=== PATIENT | male | born 1930 ===

== ENCOUNTER 2016-08-25 17:18 | Inpatient (IN) | payer MEDICARE, MEDICAID ==
[2016-08-25 17:19] VITALS: BMI 29.0
[2016-08-25] MEDS ORDERED: DiphenhydrAMINE 50 mg/ml Inj IVP STA (17:42)
[2016-08-25] MEDS ORDERED: Sodium Chloride 0.9% 500 ML IV ONE (17:43)
[2016-08-25] MEDS ORDERED: DiphenhydrAMINE 50 mg/ml Inj ONE (17:51)
[2016-08-25] MEDS ORDERED: Sodium Chloride 0.9% 1,000 ML ONE (17:52)
--- NOTE | 2016-08-25 17:57 | C.PDOC ---
History Of Present Illness Patient brought to ED by family members for evaluation of swelling of face/ upper lip since waking up this morning. Patient denies SOB, tongue swelling, sensation of throat closing up, dental pain, chest pain, palpitations, fever, itching or rash. He also denies known allergens. Patient has h/o DM, HTN, hyperlipidemia - currently on EDDIE inhibitor x several years. Family gave patient PO Benadryl this morning. Time Seen by Provider: 08/25/16 17:42 Chief Complaint (Nursing): Allergic Reaction History Per: Patient, Family History/Exam Limitations: no limitations Onset/Duration Of Symptoms: Hrs Current Symptoms Are (Timing): Still Present Severity: Moderate Past Medical History Reviewed: Historical Data, Nursing Documentation, Vital Signs Vital Signs: Last Vital Signs Temp 97.6 F 08/30/16 08:05 Pulse 69 08/30/16 08:05 Resp 18 08/30/16 08:05 BP 148/69 08/30/16 08:05 Pulse Ox 99 08/30/16 08:05 - Medical History PMH: Arthritis (B/L KNEE), Depression, Diabetes (type 2), HTN, Hypercholesterolemia, Peripheral Edema Surgical History: Endoscopy - [facility] Procedures VACCINATION NEC (06/07/14) Family History: States: No Known Family Hx - Social History Hx Tobacco Use: No Hx Alcohol Use: No Hx Substance Use: No - Immunization History Hx Tetanus Toxoid Vaccination: No Hx Influenza Vaccination: No Hx Pneumococcal Vaccination: No Review Of Systems Except As Marked, All Systems Reviewed And Found Negative. Constitutional: Negative for: Fever, Chills ENT: Positive for: Mouth Swelling (upper lip swelling ). Negative for: Throat Swelling Cardiovascular: Negative for: Chest Pain, Palpitations Respiratory: Negative for: Cough, Shortness of Breath, Wheezing Gastrointestinal: Negative for: Nausea, Vomiting Skin: Negative for: Rash Physical Exam - Physical Exam Appears: Well, Non-toxic, No Acute Distress, Other (speaking in full sentences) Skin: No Rash, Other (upper lip/face swelling) Head: Normacephalic Eye(s): bilateral: Normal Inspection Oral Mucosa: Moist, No Drooling, No Trismus Tongue: Normal Appearing, No Swelling, No Lesions Lips: Swelling (upper lip) Teeth: Normal Dentition Gingiva: Normal Appearing Throat: Normal, No Erythema, No Exudate, No Drooling Neck: Normal, Normal ROM Cardiovascular: Rhythm Regular Respiratory: Normal Breath Sounds, No Rales, No Rhonchi, No Wheezing Extremity: Normal ROM, No Pedal Edema Neurological/Psych: Oriented x3 ED Course And Treatment - Laboratory Results Result Diagrams: 08/25/16 17:57 08/30/16 11:04 ECG: Interpreted By Me, Viewed By Me (sinus rhythm 70 bpm, normal axis, no acute ST/T wave changes) ECG Interpretation: Normal O2 Sat by Pulse Oximetry: 98 (RA) Pulse Ox Interpretation: Normal Progress Note: Blood work ordered and reviewed. Patient given IV NS bolus, IV solumedrol, IV pepcid, IV benadryl. Blood work shows significant hypocalcemia - PO & IV Calcium ordered. - Physician Consult Information Physician Contacted: Michoacano Love Outcome Of Conversation: Discussed patient with Dr. Senthil Love, agrees with telemetry observation for lip swelling/angioedema, likely due to EDDIE inhibitor. Disposition - Disposition Disposition: HOSPITALIZED Disposition Time: 18:55 Condition: STABLE - Clinical Impression Clinical Impression: ARF (acute renal failure), EDDIE inhibitor-aggravated angioedema, Lip swelling, Hypocalcemia Decision To Admit - Pt Status Changed To: Hospital Disposition Of: Inpatient - Admit Certification Admit to Inpatient:: After my assessment, the patient will require hospitalization for at least two midnights. This is because of the severity of symptoms shown, intensity of services needed, and/or the medical risk in this patient being treated as an outpatient. - InPatient: Physician Admission Certification: I certify that this patient requires 2 or more midnights of care for the following reason:: see notes - . Bed Request Type: Telemetry Admitting Physician: Michoacano Love Patient Diagnosis: Hypocalcemia, Lip swelling, EDDIE inhibitor-aggravated angioedema, ARF (acute renal failure)
[2016-08-25 18:02] LABS: BASO % 0.5 % (0.0-2.0); EOS # 0.2 K/uL (0.0-0.7); EOS % 2.9 % (0.0-4.0); HEMATOCRIT 34.9 % (35.0-51.0); LYMPH # 1.8 K/uL (1.0-4.3); LYMPH % 22.5 % (20.0-40.0); MEAN CELL VOLUME 85.4 fL (80.0-94.0); MEAN CORPUSCULAR HEMOGLOBIN 29.5 pg (27.0-31.0); MEAN CORPUSCULAR HGB CONC 34.5 g/dL (33.0-37.0); MEAN PLATELET VOLUME 7.9 fL (7.2-11.7); MONO # 0.8 K/uL (0.0-0.8); MONO % 10.4 % (0.0-10.0); RED CELL DISTRIBUTION WIDTH 12.1 % (11.5-14.5); WHITE BLOOD COUNT 8.1 K/uL (4.8-10.8)
[2016-08-25 18:50] LABS: POTASSIUM 4.1 mmol/L (3.6-5.2)
[2016-08-25 18:52] LABS: ALB/GLOB RATIO 1.2 (1.0-2.1); BILIRUBIN,TOTAL 0.5 mg/dL (0.2-1.3); TOTAL PROTEIN 6.7 g/dL (6.3-8.3)
[2016-08-25 18:55] LABS: CALCIUM 4.4 mg/dl (8.6-10.4)
[2016-08-25] MEDS ORDERED: Calcium Carbonate 500 mg Chewable Antacid Tab PO STA (19:00)
[2016-08-25] MEDS ORDERED: Calcium Gluconate 4.65 mEq/10 ml Inj IVP ONE (19:13)
[2016-08-25] MEDS ORDERED: Calcium Gluconate 4.65 mEq/10 ml Inj ONE (19:41)
--- NOTE | 2016-08-25 19:52 | CP.PCM.HP ---
Past Patient History - Infectious Disease Hx of Infectious Diseases: None - Past Medical History & Family History Past Medical History?: Yes - Past Social History Smoking Status: Former Smoker - CARDIAC Hx Hypercholesterolemia: Yes Hx Hypertension: Yes Hx Peripheral Edema: Yes - PULMONARY Hx Respiratory Disorders: No - NEUROLOGICAL Hx Neurological Disorder: No - HEENT Hx HEENT Problems: Yes Hx Glaucoma: Yes - RENAL Hx Chronic Kidney Disease: No - ENDOCRINE/METABOLIC Hx Diabetes Mellitus Type 1: Yes - HEMATOLOGICAL/ONCOLOGICAL Hx Blood Disorders: No - INTEGUMENTARY Hx Dermatological Problems: No - MUSCULOSKELETAL/RHEUMATOLOGICAL Hx Arthritis: Yes (B/L KNEE) - GASTROINTESTINAL Hx Gastrointestinal Disorders: Yes Hx Fatty Liver Disease: Yes Hx Gastroesophageal Reflux: Yes Other/Comment: ABDOMINAL PAIN ON AND OFF - GENITOURINARY/GYNECOLOGICAL Hx Genitourinary Disorders: No - PSYCHIATRIC Hx Depression: Yes Hx Substance Use: No - SURGICAL HISTORY Hx Surgeries: Yes Hx Herniorrhaphy: Yes (R INGUINAL 6 YRS AGO) - ANESTHESIA Hx Anesthesia: Yes Hx Anesthesia Reactions: No Hx Malignant Hyperthermia: No Meds Allergies/Adverse Reactions: Allergies Allergy/AdvReac Type Severity Reaction Status Date / Time No Known Allergies Allergy Verified 08/25/16 17:28 Results - Vital Signs Recent Vital Signs: Last Vital Signs Temp 97 F L 08/25/16 17:28 Pulse 68 08/25/16 17:28 Resp 20 08/25/16 17:28 BP 129/65 08/25/16 17:28 Pulse Ox 98 08/25/16 18:41 - Labs Result Diagrams: 08/25/16 17:57 08/25/16 18:32 Labs: Laboratory Results - last 24 hr 08/25/16 18:58 Magnesium 2.0
[2016-08-25] MEDS: (Novolin R) Insulin Human Regular 100 units/ml vial SC SCH (21:30)
[2016-08-26] MEDS: (Novolin R) Insulin Human Regular 100 units/ml vial SC SCH ×4 (02:59→20:37)
[2016-08-26] MEDS: Pantoprazole 40 mg EC Tab PO SCH ×2 (09:12→18:00)
[2016-08-26] MEDS: Multiple Vitamins Tab PO SCH (09:13)
[2016-08-26] MEDS: Divalproex 250 mg DR Tab PO SCH ×2 (09:52→17:40)
[2016-08-26 11:24] LABS: CHLORIDE 96 mmol/L (98-107); POTASSIUM 4.2 mmol/L (3.6-5.2); SODIUM 130 mmol/L (132-148)
[2016-08-26 11:27] LABS: BLOOD UREA NITROGEN 32 mg/dL (9-20); CARBON DIOXIDE 20 mmol/L (22-30); GFR AFRICAN-AMERICAN > 60; GLUCOSE,RANDOM 224 mg/dL (75-110)
[2016-08-26 11:36] LABS: CALCIUM 5.3 mg/dl (8.6-10.4)
--- NOTE | 2016-08-26 13:36 | CP.PCM.PN ---
Subjective - Date & Time of Evaluation Date of Evaluation: 08/26/16 Time of Evaluation: 11:20 - Subjective Subjective: clinically same Objective - Vital Signs/Intake and Output Vital Signs (last 24 hours): Temp Pulse Resp BP Pulse Ox 97.8 F 75 20 126/68 97 08/25/16 23:20 08/26/16 07:40 08/25/16 23:20 08/25/16 23:20 08/25/16 23:20 Intake and Output: 08/26/16 08/26/16 06:59 18:59 Intake Total 200 Output Total 250 Balance -50 - Medications Medications: Current Medications Acetaminophen (Tylenol 325mg Tab) 650 mg PO Q6 PRN PRN Reason: for pain/ headache Last Admin: 08/25/16 21:28 Dose: 650 mg Amlodipine Besylate (Norvasc) 5 mg PO DAILY [facility] Last Admin: 08/26/16 09:13 Dose: 5 mg Carvedilol (Coreg) 3.125 mg PO BID [facility] Last Admin: 08/26/16 09:13 Dose: 3.125 mg Divalproex Sodium (Depakote Dr) 250 mg PO BID [facility] Last Admin: 08/26/16 09:52 Dose: 250 mg Donepezil HCl (Aricept) 10 mg PO DAILY [facility] Dorzolamide HCl (Trusopt) 0 ml OU BID [facility] Heparin Sodium (Porcine) (Heparin) 5,000 units SC Q12H [facility] Last Admin: 08/26/16 09:46 Dose: 5,000 units Insulin Human Regular (Novolin R) 0 unit SC Q6H [facility] PRN Reason: Protocol Last Admin: 08/26/16 09:30 Dose: 4 unit Levetiracetam (Keppra) 500 mg PO Q12 [facility] Last Admin: 08/26/16 09:12 Dose: 500 mg Lisinopril (Zestril) 10 mg PO DAILY [facility] Last Admin: 08/26/16 09:12 Dose: 10 mg Losartan Potassium (Cozaar) 100 mg PO DAILY [facility] Last Admin: 08/26/16 09:12 Dose: 100 mg Memantine (Namenda) 5 mg PO BID [facility] Last Admin: 08/26/16 09:31 Dose: 5 mg Multivitamins (Hexavitamin) 1 tab PO DAILY [facility] Last Admin: 06/03/17 09:13 Dose: 1 tab Pantoprazole Sodium (Protonix Ec Tab) 40 mg PO BID [facility] Last Admin: 08/26/16 09:12 Dose: 40 mg Rosuvastatin Calcium (Crestor) 5 mg PO HS [facility] Last Admin: 08/25/16 21:28 Dose: 5 mg Sitagliptin Phosphate (Januvia) 50 mg PO DAILY [facility] Last Admin: 08/26/16 09:12 Dose: 50 mg Timolol Maleate (Timoptic 0.5% Ophth Soln) 1 drop OU DAILY [facility] Tramadol HCl (Ultram) 50 mg PO TID PRN PRN Reason: Pain, moderate (4-7) - Labs Labs: 08/26/16 11:13 - Constitutional Appears: Well - Head Exam Head Exam: ATRAUMATIC, NORMAL INSPECTION, NORMOCEPHALIC - Eye Exam Eye Exam: EOMI, Normal appearance, PERRL Pupil Exam: NORMAL ACCOMODATION, PERRL - ENT Exam ENT Exam: Mucous Membranes Moist, Normal Exam - Neck Exam Neck Exam: Full ROM, Normal Inspection. absent: Lymphadenopathy - Respiratory Exam Respiratory Exam: Decreased Breath Sounds - Cardiovascular Exam Cardiovascular Exam: REGULAR RHYTHM, +S1, +S2 - GI/Abdominal Exam GI & Abdominal Exam: Soft, Diminished Bowel Sounds - Rectal Exam Rectal Exam: Deferred Assessment and Plan - Assessment and Plan (Free Text) Plan: hold isabel inh iv steroid contis ae med reconilation noneed for iv antibiotic will see with iv steroid adn yeyos given at home
[2016-08-26] MEDS: MethylPREDNISolone 40 mg Vial IVP SCH ×2 (14:17→21:35)
[2016-08-26] MEDS: Dorzolamide 2% Opht Sol 10ml OU SCH ×2 (14:22→17:40)
[2016-08-26] MEDS: Calcium-Vit D 250 mg-125 Units Tab UD PO SCH (15:31)
[2016-08-26 17:30] LABS: PHOSPHOROUS 6.2 mg/dL (2.5-4.5)
--- NOTE | 2016-08-26 19:09 | CP.PCM.CON ---
History of Present Illness - History of Present Illness History of Present Illness: 86 year old gentleman with history of hypertension on enalapril. Recently was admitted after a fall with intracerebral bleed that improved with observation still on Keppra. Was admitted with swallowing face treated with Benadryl and sternoid. Patient was noted to have deteriorating renal function and severe hypocalcemia however with no symptom Review of Systems - Constitutional Constitutional: Anorexia, Weakness - EENT Eyes: absent: Discharge, Exophthalmos Nose/Mouth/Throat: absent: Epistaxis - Cardiovascular Cardiovascular: absent: Acrocyanosis, Chest Pain, Dyspnea on Exertion, Palpitations, Syncope - Respiratory Respiratory: absent: Cough, Dyspnea, Hemoptysis - Gastrointestinal Gastrointestinal: absent: Abdominal Pain, Diarrhea, Hematochezia, Nausea, Vomiting - Genitourinary Genitourinary: Urinary Frequency Past Patient History - Infectious Disease Hx of Infectious Diseases: None - Past Medical History & Family History Past Medical History?: Yes - Past Social History Smoking Status: Former Smoker - CARDIAC Hx Hypercholesterolemia: Yes Hx Hypertension: Yes Hx Peripheral Edema: Yes - PULMONARY Hx Respiratory Disorders: No - NEUROLOGICAL Hx Neurological Disorder: Yes Hx Alzheimer's Disease: Yes - HEENT Hx HEENT Problems: Yes Hx Glaucoma: Yes - RENAL Hx Chronic Kidney Disease: No - ENDOCRINE/METABOLIC Hx Diabetes Mellitus Type 1: Yes - HEMATOLOGICAL/ONCOLOGICAL Hx Blood Disorders: No - INTEGUMENTARY Hx Dermatological Problems: No - MUSCULOSKELETAL/RHEUMATOLOGICAL Hx Falls: Yes - GASTROINTESTINAL Hx Gastrointestinal Disorders: Yes Hx Fatty Liver Disease: Yes Hx Gastroesophageal Reflux: Yes Other/Comment: ABDOMINAL PAIN ON AND OFF - GENITOURINARY/GYNECOLOGICAL Hx Genitourinary Disorders: No - PSYCHIATRIC Hx Depression: Yes Hx Substance Use: No - SURGICAL HISTORY Hx Surgeries: Yes Hx Herniorrhaphy: Yes (R INGUINAL 6 YRS AGO) - ANESTHESIA Hx Anesthesia: Yes Hx Anesthesia Reactions: No Hx Malignant Hyperthermia: No Meds Allergies/Adverse Reactions: Allergies Allergy/AdvReac Type Severity Reaction Status Date / Time No Known Allergies Allergy Verified 08/25/16 17:28 - Medications Medications: Current Medications Acetaminophen (Tylenol 325mg Tab) 650 mg PO Q6 PRN PRN Reason: for pain/ headache Last Admin: 08/25/16 21:28 Dose: 650 mg Amlodipine Besylate (Norvasc) 5 mg PO DAILY [facility] Last Admin: 06/03/17 09:13 Dose: 5 mg Calcium/Vitamin D (Oscal-D 250 Mg-125 Units Tab) 1 tab PO DAILY [facility] Last Admin: 08/26/16 15:31 Dose: 1 tab Carvedilol (Coreg) 3.125 mg PO BID [facility] Last Admin: 08/26/16 17:40 Dose: 3.125 mg Divalproex Sodium (Depakote Dr) 250 mg PO BID [facility] Last Admin: 08/26/16 17:40 Dose: 250 mg Donepezil HCl (Aricept) 10 mg PO DAILY [facility] Last Admin: 08/26/16 14:10 Dose: 10 mg Dorzolamide HCl (Trusopt) 0 ml OU BID [facility] Last Admin: 08/26/16 17:40 Dose: 1 2 Heparin Sodium (Porcine) (Heparin) 5,000 units SC Q12H [facility] Last Admin: 08/26/16 09:46 Dose: 5,000 units Insulin Human Regular (Novolin R) 0 unit SC Q6H [facility] PRN Reason: Protocol Last Admin: 08/26/16 14:14 Dose: 4 unit Levetiracetam (Keppra) 500 mg PO Q12 [facility] Last Admin: 08/26/16 09:12 Dose: 500 mg Losartan Potassium (Cozaar) 100 mg PO DAILY [facility] Last Admin: 08/26/16 09:12 Dose: 100 mg Memantine (Namenda) 5 mg PO BID [facility] Last Admin: 08/26/16 17:40 Dose: 5 mg Methylprednisolone (Solu-Medrol) 40 mg IVP Q8 [facility] Last Admin: 08/26/16 14:17 Dose: 40 mg Multivitamins (Hexavitamin) 1 tab PO DAILY [facility] Last Admin: 08/26/16 09:13 Dose: 1 tab Pantoprazole Sodium (Protonix Ec Tab) 40 mg PO BID [facility] Last Admin: 08/26/16 09:12 Dose: 40 mg Rosuvastatin Calcium (Crestor) 5 mg PO HS [facility] Last Admin: 08/25/16 21:28 Dose: 5 mg Sitagliptin Phosphate (Januvia) 50 mg PO DAILY [facility] Last Admin: 08/26/16 09:12 Dose: 50 mg Timolol Maleate (Timoptic 0.5% Ophth Soln) 1 drop OU DAILY [facility] Last Admin: 08/26/16 14:23 Dose: 1 % Tramadol HCl (Ultram) 50 mg PO TID PRN PRN Reason: Pain, moderate (4-7) Physical Exam - Constitutional Appears: Non-toxic - Head Exam Head Exam: ATRAUMATIC - ENT Exam ENT Exam: Mucous Membranes Moist - Neck Exam Neck exam: Negative for: Lymphadenopathy, Thyromegaly - Respiratory Exam Respiratory Exam: Clear to Auscultation Bilateral. absent: Rales - Cardiovascular Exam Cardiovascular Exam: REGULAR RHYTHM, Systolic Murmur - GI/Abdominal Exam GI & Abdominal Exam: Normal Bowel Sounds. absent: Organomegaly - Rectal Exam Rectal Exam: Deferred - Extremities Exam Extremities exam: Positive for: normal capillary refill. Negative for: calf tenderness - Neurological Exam Neurological exam: Alert - Psychiatric Exam Psychiatric exam: Depressed - Skin Skin Exam: Dry Results - Vital Signs Recent Vital Signs: Last Vital Signs Temp 98.1 F 08/26/16 15:45 Pulse 84 08/26/16 15:45 Resp 20 08/26/16 15:45 BP 135/73 08/26/16 15:45 Pulse Ox 100 08/26/16 15:45 - Labs Result Diagrams: 08/25/16 17:57 08/28/16 10:59 Labs: Laboratory Results - last 24 hr 08/25/16 08/25/16 08/26/16 18:58 21:19 06:12 Sodium Potassium Chloride Carbon Dioxide Anion Gap BUN Creatinine Est GFR ( Amer) Est GFR (Non-Af Amer) POC Glucose (mg/dL) 276 H 208 H Random Glucose Calcium Phosphorus Magnesium 2.0 08/26/16 08/26/16 08/26/16 11:06 11:13 17:04 Sodium 130 L Potassium 4.2 Chloride 96 L Carbon Dioxide 20 L Anion Gap 18 BUN 32 H Creatinine 1.3 Est GFR ( Amer) > 60 Est GFR (Non-Af Amer) 53 POC Glucose (mg/dL) 254 H Random Glucose 224 H Calcium 5.3 L* D Phosphorus 6.2 H Magnesium 2.0 08/26/16 17:17 Sodium Potassium Chloride Carbon Dioxide Anion Gap BUN Creatinine Est GFR ( Amer) Est GFR (Non-Af Amer) POC Glucose (mg/dL) 187 H Random Glucose Calcium Phosphorus Magnesium Assessment & Plan (1) Allergic reaction Status: Acute Comment: unknown agent, improved, stay off EDDIE inhibitor (2) Hypocalcemia Status: Acute Comment: endocrine workup
[2016-08-27] MEDS: (Novolin R) Insulin Human Regular 100 units/ml vial SC SCH ×4 (02:10→22:36)
[2016-08-27] MEDS: MethylPREDNISolone 40 mg Vial IVP SCH ×3 (06:47→22:35)
--- NOTE | 2016-08-27 07:51 | CON ---
DATE: 08/26/2016 ROOM: 655 This is an 86-year-old male with known history of diabetes and hypertension, presenting here with eddie den onset of facial and upper lip swelling with possible angioedema and is now being referred for end ocrine evaluation because of persistent hypocalcemia as noted thereof. PAST MEDICAL HISTORY: As mentioned above, a history of type 2 diabetes on oral hypoglycemic therapy, taking Januvia units once daily in the morning. History of hypertensive cardiovascular diseas e and dyslipidemia, history of recent accidental fall with an intracerebral hemorrhage and has been o n prophylactic management for seizure disorder as noted. FAMILY HISTORY: Positive for hypertension and diabetes. SOCIAL HISTORY: The patient has a supportive family. No known substance use. REVIEW OF SYSTEMS: As mentioned above, admits to generalized body weakness with easy fatigability an d tiredness and suboptimal energy level. Also admits to episodic dizziness and lightheadedness, wors e in the last few weeks prior to admission. No chest pains or palpitations or PNDs. His oral intake is variable with nausea, dyspepsia, and vague upper abdominal pains. PHYSICAL EXAMINATION: GENERAL: This is an average built male, in no apparent distress. VITAL SIGNS: Blood pressure of 140/80, pulse of 70 beats per minute, regular, temperature 98, respir ations 20. Height is 5 feet 7 inches, weight is 170 pounds. HEENT: Head normocephalic. Eyes anicteric with pink conjunctivae. Fundoscopy not possible at this time. Ears, nose and throat otherwise normal. NECK: Supple. Thyroid gland is normal in size. No carotid bruits or any cervical adenopathy. CARDIOPULMONARY: Some adynamic precordium. S1, S2 is rapid and regular. LUNGS: Clear to auscultation. ABDOMEN: Flat, soft with positive bowel sounds. EXTREMITIES: No peripheral edema. Pulses are +2 bilaterally. LABORATORIES: The chemistry showed a BUN of 32, sodium 130, potassium 4.2, chloride 96, CO2 20, gluc ose 224, and creatinine 1.3. The calcium level is 5.3 with a phosphorus of 6.2 and magnesium of 2.0. ASSESSMENT: This is an 86-year-old male with symptomatic hypocalcemia and associated neuromuscular i rritability and painful dysesthesias, now being referred for endocrine evaluation and management. We have to exclude whether we are dealing with a parathyroid versus non-parathyroid etiology for the af orementioned hypocalcemic event. With no overt surgical neck resection which will contribute to the hypocalcemia, would have to exclude any underlying autoimmune related thyroiditis. We will obtain se rial chemistry and supplement accordingly as needed. We will also obtain a parathyroid hormone intac t level and a T4 and TSH value as noted thereof. We will also repeat the electrolytes with phosphoru s, magnesium levels and also vitamin D hydroxy, vitamin D as ordered. We will add calcitriol at 0.5 mcg b.i.d. before meals as ordered. We will titrate incrementally as indicated to optimize metabolic control. We will follow. Zamzam Ahuja MD cc: [id number] TT: 08/27/2016 07:48:01 Confirmation # [id number] Dictation # [id number] en
[2016-08-27 08:00] LABS: ALB/GLOB RATIO 1.2 (1.0-2.1); BILIRUBIN,TOTAL 0.5 mg/dL (0.2-1.3); PHOSPHOROUS 6.6 mg/dL (2.5-4.5); POTASSIUM 4.3 mmol/L (3.6-5.2); TOTAL PROTEIN 6.6 g/dL (6.3-8.3)
[2016-08-27 08:10] LABS: T4 8.48 ug/dL (5.5-11.0)
[2016-08-27 08:11] LABS: CALCIUM 5.6 mg/dl (8.6-10.4)
[2016-08-27 08:22] LABS: THYROID STIMULATING HORMONE 0.06 mIU/L (0.46-4.68)
[2016-08-27] MEDS: Multiple Vitamins Tab PO SCH (09:40)
[2016-08-27] MEDS: Calcium-Vit D 250 mg-125 Units Tab UD PO SCH (09:47)
[2016-08-27] MEDS: Dorzolamide 2% Opht Sol 10ml OU SCH ×2 (09:50→18:14)
[2016-08-27] MEDS: Divalproex 250 mg DR Tab PO SCH (09:53)
[2016-08-27] MEDS: Pantoprazole 40 mg EC Tab PO SCH ×2 (10:00→18:14)
--- NOTE | 2016-08-27 11:40 | PN ---
DATE: 08/27/2016 ROOM: 665 This is an 86-year-old male with recent facial swelling and possible angioedema, which is drug relate d and now also being followed closely for metabolic management of persistent hypocalcemia as noted th ereof. He admits to episodic neuromuscular spasms in both upper and lower extremities as noted. His latest chemistries today showed a BUN of 36, sodium 132, potassium 4.3, chloride 97, CO2 21, gluc ose 180 and creatinine 1.4. His calcium level today is 5.6 mg/dL with an albumin of 3.6 and a correc jocelynn calcium of 6.0 mg/dL. His thyroid studies showed a T4 of 8.48 with a TSH of 0.06. The PTH level is pending at this time. The phosphorus level is 6.6. Vitamin D level is 37.1. ASSESSMENT: This is an 86-year-old male with drug induced angioedema and facial swelling, currently on IV steroid therapy and also has concomitant symptomatic hypocalcemia, etiology of which has to be ascertained at this time, whether we are dealing with a parathyroid versus non-parathyroid etiology. However, with advanced age of the patient, it would be quite unlikely to have an autoimmune related hypoparathyroidism. There is no prior surgical neck resection by history as noted. Moreover, there is no recent gastrointestinal related colitis or malabsorption or diarrhea which could contribute to the hypocalcemia as noted thereof. His vitamin D levels are near optimal as noted. The thyroid stud ies are indicative of the so-called acute sick euthyroid syndrome with transient TSH suppression from the intercurrent IV steroid therapy as given. PLAN OF MANAGEMENT: We will add calcitriol at 0.5 mcg p.o. b.i.d. to start this morning as ordered. We will continue the calcium and vitamin D supplementation at this time. As the patient is hemodyna mically stable, we will hold off on calcium infusion for now. We will obtain serial chemistries and supplement accordingly as needed. We will follow. Zamzam Ahuja MD cc: [id number] TT: 08/27/2016 11:40:21 Confirmation # [id number] Dictation # [id number] en
--- NOTE | 2016-08-27 12:11 | CP.PCM.PN ---
Subjective - Date & Time of Evaluation Date of Evaluation: 08/27/16 Objective - Vital Signs/Intake and Output Vital Signs (last 24 hours): Temp Pulse Resp BP Pulse Ox 98.6 F 76 20 119/63 97 08/26/16 23:20 08/26/16 23:20 08/26/16 23:20 08/26/16 23:20 08/26/16 23:20 - Medications Medications: Current Medications Acetaminophen (Tylenol 325mg Tab) 650 mg PO Q6 PRN PRN Reason: for pain/ headache Last Admin: 08/25/16 21:28 Dose: 650 mg Amlodipine Besylate (Norvasc) 5 mg PO DAILY [facility] Last Admin: 08/27/16 09:33 Dose: 5 mg Calcitriol (Rocaltrol) 0.5 mcg PO BID [facility] Last Admin: 08/27/16 09:48 Dose: 0.5 mcg Calcium/Vitamin D (Oscal-D 250 Mg-125 Units Tab) 1 tab PO DAILY [facility] Last Admin: 08/27/16 09:47 Dose: 1 tab Carvedilol (Coreg) 3.125 mg PO BID [facility] Last Admin: 08/27/16 09:34 Dose: 3.125 mg Donepezil HCl (Aricept) 10 mg PO DAILY [facility] Last Admin: 08/27/16 09:33 Dose: 10 mg Dorzolamide HCl (Trusopt) 0 ml OU BID [facility] Last Admin: 08/27/16 09:50 Dose: 1 2 Heparin Sodium (Porcine) (Heparin) 5,000 units SC Q12H [facility] Last Admin: 08/27/16 09:39 Dose: 5,000 units Insulin Human Regular (Novolin R) 0 unit SC Q6H [facility] PRN Reason: Protocol Last Admin: 08/27/16 09:44 Dose: 2 unit Levetiracetam (Keppra) 500 mg PO Q12 [facility] Last Admin: 08/27/16 09:40 Dose: 500 mg Losartan Potassium (Cozaar) 100 mg PO DAILY [facility] Last Admin: 08/27/16 09:33 Dose: 100 mg Memantine (Namenda) 5 mg PO BID [facility] Last Admin: 08/27/16 09:33 Dose: 5 mg Methylprednisolone (Solu-Medrol) 40 mg IVP Q8 [facility] Last Admin: 08/27/16 06:47 Dose: 40 mg Multivitamins (Hexavitamin) 1 tab PO DAILY [facility] Last Admin: 08/27/16 09:40 Dose: 1 tab Pantoprazole Sodium (Protonix Ec Tab) 40 mg PO BID [facility] Last Admin: 08/26/16 18:00 Dose: 40 mg Rosuvastatin Calcium (Crestor) 5 mg PO HS [facility] Last Admin: 08/26/16 21:35 Dose: 5 mg Sitagliptin Phosphate (Januvia) 50 mg PO DAILY [facility] Last Admin: 08/27/16 09:34 Dose: 50 mg Timolol Maleate (Timoptic 0.5% Ophth Soln) 1 drop OU DAILY [facility] Last Admin: 08/27/16 09:51 Dose: 1 % Tramadol HCl (Ultram) 50 mg PO TID PRN PRN Reason: Pain, moderate (4-7) - Labs Labs: 08/27/16 07:26 Assessment and Plan - Assessment and Plan (Free Text) Plan: chema same disconti lisinopril and divalproe s/p dr. reynoso iv steroid mx as ordered
[2016-08-27] MEDS ORDERED: (Novolin R) Insulin Human Regular 100 units/ml vial SC SCH (22:00)
[2016-08-27] MEDS ORDERED: (Lantus) Insulin Glargine, Recombinant SC SCH (22:00)
[2016-08-28] MEDS ORDERED: DiphenhydrAMINE 50 mg/ml Inj IVP STA (01:14)
[2016-08-28] MEDS: MethylPREDNISolone 40 mg Vial IVP SCH ×2 (05:42→21:56)
[2016-08-28] MEDS: (Novolin R) Insulin Human Regular 100 units/ml vial SC SCH ×4 (08:54→21:57)
[2016-08-28] MEDS: Pantoprazole 40 mg EC Tab PO SCH ×2 (11:10→18:57)
[2016-08-28] MEDS: Multiple Vitamins Tab PO SCH (11:10)
[2016-08-28] MEDS: Calcium-Vit D 250 mg-125 Units Tab UD PO SCH ×2 (11:11→19:08)
[2016-08-28 11:23] LABS: CHLORIDE 95 mmol/L (98-107); POTASSIUM 3.9 mmol/L (3.6-5.2); SODIUM 132 mmol/L (132-148)
[2016-08-28 11:25] LABS: ALB/GLOB RATIO 1.1 (1.0-2.1); ALKALINE PHOSPHATASE 86 U/L (38-126); AST/SGOT 24 U/L (17-59); BILIRUBIN,TOTAL 0.5 mg/dL (0.2-1.3); CARBON DIOXIDE 23 mmol/L (22-30); GFR AFRICAN-AMERICAN > 60; TOTAL PROTEIN 6.6 g/dL (6.3-8.3)
[2016-08-28 11:26] LABS: ALT/SGPT 30 U/L (21-72); BLOOD UREA NITROGEN 32 mg/dL (9-20); GLUCOSE,RANDOM 231 mg/dL (75-110)
[2016-08-28 11:35] LABS: CALCIUM 5.4 mg/dl (8.6-10.4)
[2016-08-28] MEDS: Dorzolamide 2% Opht Sol 10ml OU SCH ×2 (12:26→18:58)
--- NOTE | 2016-08-28 13:08 | CARD ---
APPROVED REPORT EKG Measurement Heart [id number] <Conclusion> Normal sinus rhythm Normal EKG
--- NOTE | 2016-08-28 15:51 | CP.PCM.PN ---
Subjective - Date & Time of Evaluation Date of Evaluation: 08/28/16 Time of Evaluation: 09:40 - Subjective Subjective: clinically same Objective - Vital Signs/Intake and Output Vital Signs (last 24 hours): Temp Pulse Resp BP Pulse Ox 97.5 F L 78 20 165/80 H 98 08/28/16 07:21 08/28/16 10:00 08/28/16 07:21 08/28/16 07:21 08/28/16 07:21 - Medications Medications: Current Medications Acetaminophen (Tylenol 325mg Tab) 650 mg PO Q6 PRN PRN Reason: for pain/ headache Last Admin: 08/25/16 21:28 Dose: 650 mg Amlodipine Besylate (Norvasc) 5 mg PO DAILY [facility] Last Admin: 08/28/16 11:10 Dose: 5 mg Calcitriol (Rocaltrol) 0.5 mcg PO BID [facility] Last Admin: 08/28/16 11:11 Dose: 0.5 mcg Calcium/Vitamin D (Oscal-D 250 Mg-125 Units Tab) 1 tab PO DAILY [facility] Last Admin: 08/28/16 11:11 Dose: 1 tab Carvedilol (Coreg) 3.125 mg PO BID [facility] Last Admin: 08/28/16 11:10 Dose: 3.125 mg Docusate Sodium (Colace) 100 mg PO BID [facility] Donepezil HCl (Aricept) 10 mg PO DAILY [facility] Last Admin: 08/28/16 11:11 Dose: 10 mg Dorzolamide HCl (Trusopt) 0 ml OU BID [facility] Last Admin: 08/28/16 12:26 Dose: 1 2 Glimepiride (Amaryl) 4 mg PO ACBD [facility] Last Admin: 08/28/16 08:55 Dose: 4 mg Insulin Glargine (Lantus) 14 unit SC HS [facility] Last Admin: 08/27/16 22:35 Dose: 14 units Insulin Human Regular (Novolin R) 0 unit SC ACHS [facility] PRN Reason: Protocol Last Admin: 08/28/16 12:25 Dose: 1 unit Levetiracetam (Keppra) 500 mg PO Q12 [facility] Last Admin: 08/28/16 11:10 Dose: 500 mg Losartan Potassium (Cozaar) 100 mg PO DAILY [facility] Last Admin: 08/28/16 11:10 Dose: 100 mg Memantine (Namenda) 5 mg PO BID [facility] Last Admin: 08/28/16 11:11 Dose: 5 mg Methylprednisolone (Solu-Medrol) 40 mg IVP Q12 [facility] Multivitamins (Hexavitamin) 1 tab PO DAILY [facility] Last Admin: 08/28/16 11:10 Dose: 1 tab Pantoprazole Sodium (Protonix Ec Tab) 40 mg PO BID [facility] Last Admin: 08/28/16 11:10 Dose: 40 mg Rosuvastatin Calcium (Crestor) 5 mg PO HS [facility] Last Admin: 08/27/16 22:34 Dose: 5 mg Sitagliptin Phosphate (Januvia) 50 mg PO DAILY [facility] Last Admin: 08/28/16 11:10 Dose: 50 mg Timolol Maleate (Timoptic 0.5% Ophth Soln) 1 drop OU DAILY [facility] Last Admin: 08/28/16 12:25 Dose: 1 % Tramadol HCl (Ultram) 50 mg PO TID PRN PRN Reason: Pain, moderate (4-7) - Labs Labs: 08/28/16 10:59 - Constitutional Appears: Well - Head Exam Head Exam: ATRAUMATIC, NORMAL INSPECTION, NORMOCEPHALIC - Eye Exam Eye Exam: EOMI, Normal appearance, PERRL Pupil Exam: NORMAL ACCOMODATION, PERRL - ENT Exam ENT Exam: Mucous Membranes Moist, Normal Exam - Neck Exam Neck Exam: Full ROM, Normal Inspection. absent: Lymphadenopathy - Respiratory Exam Respiratory Exam: Decreased Breath Sounds - Cardiovascular Exam Cardiovascular Exam: REGULAR RHYTHM, +S1, +S2 - GI/Abdominal Exam GI & Abdominal Exam: Soft, Diminished Bowel Sounds - Rectal Exam Rectal Exam: Deferred
--- NOTE | 2016-08-28 18:10 | PN ---
DATE: 08/28/2016 ROOM 558 This is an 86-year-old male with recent angioedema in the facial area and also found to have an incid ental finding of marked hypocalcemia with very vague neuromuscular symptomatology at this time. No o vert carpopedal spasms or any EKG changes have been noted otherwise. He admits to occasional dyspeps ia and habitual constipation with poor oral intake at this time. No overt GI related malabsorption s yndromes have been noted otherwise. His latest chemistry showed a BUN of 32, sodium 132, potassium 3.9, chloride 95, CO2 23, glucose 231 and creatinine 1.2. His calcium level is 5.4 with an albumin level of 3.5 and a corrected calcium of 5.9 mg/dL. His parathyroid hormone level was reported as 3 milliunits per liter. The TSH is 0.06 w ith a T4 of 8.48 and vitamin D level of 37.1. 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 PLAN OF MANAGEMENT: As discussed with the patient and the staff, the available synthetic parathyroid hormone medications are extremely expensive and formidable in horvath and actually not even approved b y the insurance companies at this time. We have the so-called Forteo and/or Natpara which is a newer version or a synthetic version of the parathyroid hormone product, which again as I said, not in [place] formulary of most insurance companies. So at this, we will continue his calcium and vitamin D supp lementation at a much higher dose of the calcium to be ordered and we increased the calcium carbonate to 2 tablets t.i.d. before meals as ordered. Moreover we will also maximize his calcitriol to be gi trav at 0.5 mcg b.i.d. after meals as ordered. We will obtain serial chemistries and supplement accor dingly as needed. We will follow. We will continue the dual oral hypoglycemics drug therapy as give n with Amaryl given as 4 mg b.i.d. before meals, with Januvia given as 50 mg once daily as ordered. We will also increase the basal insulin with Lantus to be given as 20 units subQ at bedtime daily as ordered. This is only a temporary measure and modality given for inpatient diabetic management becau se he is currently on IV steroid therapy for management of angioedema as noted. We will follow and a dvise accordingly. Zamzam Ahuja MD cc: [id number] TT: 08/28/2016 18:09:53 Confirmation # [id number] Dictation # [id number]
[2016-08-28] MEDS ORDERED: (Lantus) Insulin Glargine, Recombinant SC SCH (22:00)
[2016-08-29] MEDS: Calcium-Vit D 250 mg-125 Units Tab UD PO SCH ×3 (07:30→17:05)
[2016-08-29] MEDS: (Novolin R) Insulin Human Regular 100 units/ml vial SC SCH ×3 (08:30→17:09)
[2016-08-29] MEDS: Multiple Vitamins Tab PO SCH (10:00)
[2016-08-29] MEDS: MethylPREDNISolone 40 mg Vial IVP SCH ×2 (10:00→21:43)
[2016-08-29] MEDS: Pantoprazole 40 mg EC Tab PO SCH ×2 (10:00→17:05)
[2016-08-29] MEDS: Dorzolamide 2% Opht Sol 10ml OU SCH ×2 (10:01→17:05)
--- NOTE | 2016-08-29 15:53 | PN ---
DATE: 08/29/2016 ROOM: 558 This is an 86-year-old male with recent facial angioedema and has been started on IV steroid therapy and is also now being followed closely for metabolic management of an incidental finding of hypocalce freddie as noted thereof. He denies any recent neuromuscular spasms or lower extremity cramping sensatio ns at this time. His oral intake is variable as per the nursing staff, but otherwise has been fairly stable metabolically as noted. His latest chemistries today showed a BUN of 32, sodium 132, potassium 3.9, chloride 95, CO2 23, gluc ose 231, and creatinine 1.2. His calcium level is 5.4 with an albumin level of 3.5 and corrected angelica cium of 5.9 mg/dL. His glucose values have ranged from 62-218 and 297 mg/dL. So at this time, will actually discontinue the basal insulin given as Lantus at 20 units subQ at bedt margaret daily as ordered. He is still on the IV Solu-Medrol at 40 mg every 12 hours as ordered. Will co ntinue, however, the dual oral hypoglycemic drug therapy with Januvia given as 50 mg daily and Amaryl given as 4 mg b.i.d. before meals as ordered. Will titrate incrementally as indicated to optimize m etabolic control. Will follow. Zamzam Ahuja MD cc: [id number] TT: 08/29/2016 15:53:15 Confirmation # [id number] Dictation # [id number]
[2016-08-29 16:11] LABS: CHLORIDE 96 mmol/L (98-107)
[2016-08-29 16:12] LABS: POTASSIUM 3.8 mmol/L (3.6-5.2); SODIUM 131 mmol/L (132-148)
--- NOTE | 2016-08-29 16:12 | CP.PCM.PN ---
Subjective - Date & Time of Evaluation Date of Evaluation: 08/29/16 Time of Evaluation: 09:40 - Subjective Subjective: clinically same Objective - Vital Signs/Intake and Output Vital Signs (last 24 hours): Temp Pulse Resp BP Pulse Ox 97.7 F 70 20 130/70 97 08/29/16 15:17 08/29/16 15:17 08/29/16 15:17 08/29/16 15:17 08/29/16 15:17 Intake and Output: 08/29/16 08/29/16 06:59 18:59 Intake Total 240 Balance 240 - Medications Medications: Current Medications Acetaminophen (Tylenol 325mg Tab) 650 mg PO Q6 PRN PRN Reason: for pain/ headache Last Admin: 08/25/16 21:28 Dose: 650 mg Amlodipine Besylate (Norvasc) 5 mg PO DAILY [facility] Last Admin: 08/29/16 10:00 Dose: 5 mg Calcitriol (Rocaltrol) 0.5 mcg PO BID [facility] Last Admin: 08/29/16 10:01 Dose: 0.5 mcg Calcium/Vitamin D (Oscal-D 250 Mg-125 Units Tab) 2 tab PO AC [facility] Last Admin: 08/29/16 11:20 Dose: 2 tab Carvedilol (Coreg) 3.125 mg PO BID [facility] Last Admin: 08/29/16 10:00 Dose: 3.125 mg Docusate Sodium (Colace) 100 mg PO BID [facility] Last Admin: 08/29/16 10:00 Dose: 100 mg Donepezil HCl (Aricept) 10 mg PO DAILY [facility] Last Admin: 08/29/16 10:00 Dose: 10 mg Dorzolamide HCl (Trusopt) 0 ml OU BID [facility] Last Admin: 08/29/16 10:01 Dose: 1 drop Glimepiride (Amaryl) 4 mg PO ACBD [facility] Last Admin: 08/29/16 08:30 Dose: 4 mg Insulin Human Regular (Novolin R) 0 unit SC ACHS [facility] PRN Reason: Protocol Last Admin: 08/29/16 11:20 Dose: 3 unit Levetiracetam (Keppra) 500 mg PO Q12 [facility] Last Admin: 08/29/16 10:02 Dose: 500 mg Losartan Potassium (Cozaar) 100 mg PO DAILY [facility] Last Admin: 08/29/16 10:00 Dose: 100 mg Memantine (Namenda) 5 mg PO BID [facility] Last Admin: 08/29/16 10:00 Dose: 5 mg Methylprednisolone (Solu-Medrol) 40 mg IVP Q12 [facility] Last Admin: 08/29/16 10:00 Dose: 40 mg Multivitamins (Hexavitamin) 1 tab PO DAILY [facility] Last Admin: 08/29/16 10:00 Dose: 1 tab Pantoprazole Sodium (Protonix Ec Tab) 40 mg PO BID [facility] Last Admin: 08/29/16 10:00 Dose: 40 mg Rosuvastatin Calcium (Crestor) 5 mg PO HS [facility] Last Admin: 08/28/16 21:57 Dose: 5 mg Sitagliptin Phosphate (Januvia) 50 mg PO DAILY [facility] Last Admin: 08/29/16 10:00 Dose: 50 mg Timolol Maleate (Timoptic 0.5% Ophth Soln) 1 drop OU DAILY [facility] Last Admin: 08/29/16 10:00 Dose: 1 % Tramadol HCl (Ultram) 50 mg PO TID PRN PRN Reason: Pain, moderate (4-7) - Labs Labs: 08/28/16 10:59 - Constitutional Appears: Well - Head Exam Head Exam: ATRAUMATIC, NORMAL INSPECTION, NORMOCEPHALIC - Eye Exam Eye Exam: EOMI, Normal appearance, PERRL Pupil Exam: NORMAL ACCOMODATION, PERRL - ENT Exam ENT Exam: Mucous Membranes Moist, Normal Exam - Neck Exam Neck Exam: Full ROM, Normal Inspection. absent: Lymphadenopathy - Respiratory Exam Respiratory Exam: Decreased Breath Sounds - Cardiovascular Exam Cardiovascular Exam: REGULAR RHYTHM, +S1, +S2 - GI/Abdominal Exam GI & Abdominal Exam: Soft, Diminished Bowel Sounds - Rectal Exam Rectal Exam: Deferred
[2016-08-29 16:15] LABS: BLOOD UREA NITROGEN 31 mg/dL (9-20); CARBON DIOXIDE 25 mmol/L (22-30); GFR AFRICAN-AMERICAN > 60; GLUCOSE,RANDOM 126 mg/dL (75-110)
--- NOTE | 2016-08-29 20:47 | CP.PCM.PN ---
Subjective - Date & Time of Evaluation Date of Evaluation: 08/29/16 Time of Evaluation: 12:00 - Subjective Subjective: in bed NAD, no further swollen face Objective - Vital Signs/Intake and Output Vital Signs (last 24 hours): Temp Pulse Resp BP Pulse Ox 97.7 F 90 20 130/70 97 08/29/16 15:17 08/29/16 16:00 08/29/16 15:17 08/29/16 15:17 08/29/16 15:17 Intake and Output: 08/29/16 08/30/16 18:59 06:59 Intake Total 300 Balance 300 - Medications Medications: Current Medications Acetaminophen (Tylenol 325mg Tab) 650 mg PO Q6 PRN PRN Reason: for pain/ headache Last Admin: 08/25/16 21:28 Dose: 650 mg Amlodipine Besylate (Norvasc) 5 mg PO DAILY [facility] Last Admin: 08/29/16 10:00 Dose: 5 mg Calcitriol (Rocaltrol) 0.5 mcg PO BID [facility] Last Admin: 08/29/16 17:05 Dose: 0.5 mcg Calcium/Vitamin D (Oscal-D 250 Mg-125 Units Tab) 2 tab PO AC [facility] Last Admin: 08/29/16 17:05 Dose: 2 tab Carvedilol (Coreg) 3.125 mg PO BID [facility] Last Admin: 08/29/16 17:05 Dose: 3.125 mg Docusate Sodium (Colace) 100 mg PO BID [facility] Last Admin: 08/29/16 17:05 Dose: 100 mg Donepezil HCl (Aricept) 10 mg PO DAILY [facility] Last Admin: 08/29/16 10:00 Dose: 10 mg Dorzolamide HCl (Trusopt) 0 ml OU BID [facility] Last Admin: 08/29/16 17:05 Dose: 1 drop Glimepiride (Amaryl) 4 mg PO ACBD [facility] Last Admin: 08/29/16 17:05 Dose: 4 mg Insulin Human Regular (Novolin R) 0 unit SC ACHS [facility] PRN Reason: Protocol Last Admin: 08/29/16 17:09 Dose: Not Given Levetiracetam (Keppra) 500 mg PO Q12 [facility] Last Admin: 08/29/16 10:02 Dose: 500 mg Losartan Potassium (Cozaar) 100 mg PO DAILY [facility] Last Admin: 08/29/16 10:00 Dose: 100 mg Memantine (Namenda) 5 mg PO BID [facility] Last Admin: 08/29/16 17:05 Dose: 5 mg Methylprednisolone (Solu-Medrol) 40 mg IVP Q12 [facility] Last Admin: 08/29/16 10:00 Dose: 40 mg Multivitamins (Hexavitamin) 1 tab PO DAILY [facility] Last Admin: 08/29/16 10:00 Dose: 1 tab Pantoprazole Sodium (Protonix Ec Tab) 40 mg PO BID [facility] Last Admin: 08/29/16 17:05 Dose: 40 mg Rosuvastatin Calcium (Crestor) 5 mg PO HS [facility] Last Admin: 08/28/16 21:57 Dose: 5 mg Sitagliptin Phosphate (Januvia) 50 mg PO DAILY [facility] Last Admin: 08/29/16 10:00 Dose: 50 mg Timolol Maleate (Timoptic 0.5% Ophth Soln) 1 drop OU DAILY [facility] Last Admin: 08/29/16 10:00 Dose: 1 % Tramadol HCl (Ultram) 50 mg PO TID PRN PRN Reason: Pain, moderate (4-7) - Labs Labs: 08/29/16 15:57 - Constitutional Appears: Non-toxic - Head Exam Head Exam: ATRAUMATIC - Eye Exam Eye Exam: EOMI - ENT Exam ENT Exam: Mucous Membranes Moist - Neck Exam Neck Exam: absent: Lymphadenopathy, Thyromegaly - Respiratory Exam Respiratory Exam: Clear to Ausculation Bilateral. absent: Rales - Cardiovascular Exam Cardiovascular Exam: REGULAR RHYTHM, Murmur - GI/Abdominal Exam GI & Abdominal Exam: Normal Bowel Sounds. absent: Organomegaly - Rectal Exam Rectal Exam: Deferred - Extremities Exam Extremities Exam: Normal Capillary Refill. absent: Calf Tenderness - Neurological Exam Neurological Exam: Alert - Psychiatric Exam Psychiatric exam: Normal Mood - Skin Skin Exam: Dry, Intact, Normal Color, Warm Assessment and Plan (1) Allergic reaction Status: Acute (2) Hypocalcemia Status: Acute
[2016-08-29 23:20] VITALS: RESP 18
[2016-08-30 09:25] VITALS: BP 148/69; PULSE 69; TEMP 97.6
[2016-08-30] MEDS: Calcium-Vit D 250 mg-125 Units Tab UD PO SCH ×3 (10:31→18:00)
[2016-08-30] MEDS: Multiple Vitamins Tab PO SCH (10:31)
[2016-08-30] MEDS: Pantoprazole 40 mg EC Tab PO SCH ×2 (10:31→18:00)
[2016-08-30] MEDS: (Novolin R) Insulin Human Regular 100 units/ml vial SC SCH ×4 (10:31→17:59)
[2016-08-30] MEDS: MethylPREDNISolone 40 mg Vial IVP SCH (10:41)
[2016-08-30 11:26] LABS: CHLORIDE 93 mmol/L (98-107)
[2016-08-30 11:27] LABS: POTASSIUM 4.2 mmol/L (3.6-5.2); SODIUM 130 mmol/L (132-148)
[2016-08-30 11:29] LABS: ALKALINE PHOSPHATASE 85 U/L (38-126); ALT/SGPT 35 U/L (21-72); AST/SGOT 22 U/L (17-59); BILIRUBIN,TOTAL 0.4 mg/dL (0.2-1.3); BLOOD UREA NITROGEN 24 mg/dL (9-20); CARBON DIOXIDE 23 mmol/L (22-30); GFR AFRICAN-AMERICAN > 60; TOTAL PROTEIN 6.4 g/dL (6.3-8.3)
[2016-08-30 11:30] LABS: CALCIUM 6.4 mg/dl (8.6-10.4); GLUCOSE,RANDOM 240 mg/dL (75-110)
--- NOTE | 2016-08-30 14:25 | CP.PCM.PN ---
Subjective - Date & Time of Evaluation Date of Evaluation: 08/30/16 Time of Evaluation: 12:00 - Subjective Subjective: Cemetery Counselor Notes Pt see today, alert , comfortable , periods of confusion noted bs- stable Objective - Vital Signs/Intake and Output Vital Signs (last 24 hours): Temp Pulse Resp BP Pulse Ox 97.6 F 69 18 148/69 99 08/30/16 08:05 08/30/16 08:05 08/30/16 08:05 08/30/16 08:05 08/30/16 08:05 - Medications Medications: Current Medications Acetaminophen (Tylenol 325mg Tab) 650 mg PO Q6 PRN PRN Reason: for pain/ headache Last Admin: 08/25/16 21:28 Dose: 650 mg Amlodipine Besylate (Norvasc) 5 mg PO DAILY [facility] Last Admin: 08/30/16 10:31 Dose: 5 mg Calcitriol (Rocaltrol) 0.5 mcg PO BID [facility] Last Admin: 08/30/16 10:31 Dose: 0.5 mcg Calcium/Vitamin D (Oscal-D 250 Mg-125 Units Tab) 2 tab PO AC [facility] Last Admin: 08/30/16 14:23 Dose: 2 tab Carvedilol (Coreg) 3.125 mg PO BID [facility] Last Admin: 08/30/16 10:31 Dose: 3.125 mg Docusate Sodium (Colace) 100 mg PO BID [facility] Last Admin: 08/30/16 10:30 Dose: 100 mg Donepezil HCl (Aricept) 10 mg PO DAILY [facility] Last Admin: 08/30/16 10:31 Dose: 10 mg Dorzolamide HCl (Trusopt) 0 ml OU BID [facility] Last Admin: 08/29/16 17:05 Dose: 1 drop Glimepiride (Amaryl) 4 mg PO ACBD [facility] Last Admin: 08/30/16 10:31 Dose: 4 mg Insulin Human Regular (Novolin R) 0 unit SC ACHS [facility] PRN Reason: Protocol Last Admin: 08/30/16 14:22 Dose: 3 unit Levetiracetam (Keppra) 500 mg PO Q12 [facility] Last Admin: 08/30/16 10:43 Dose: 500 mg Losartan Potassium (Cozaar) 100 mg PO DAILY [facility] Last Admin: 08/30/16 10:31 Dose: 100 mg Memantine (Namenda) 5 mg PO BID [facility] Last Admin: 08/30/16 10:31 Dose: 5 mg Methylprednisolone (Solu-Medrol) 40 mg IVP Q12 [facility] Last Admin: 08/30/16 10:41 Dose: 40 mg Multivitamins (Hexavitamin) 1 tab PO DAILY [facility] Last Admin: 08/30/16 10:31 Dose: 1 tab Pantoprazole Sodium (Protonix Ec Tab) 40 mg PO BID [facility] Last Admin: 08/30/16 10:31 Dose: 40 mg Rosuvastatin Calcium (Crestor) 5 mg PO HS [facility] Last Admin: 08/29/16 21:43 Dose: 5 mg Sitagliptin Phosphate (Januvia) 50 mg PO DAILY [facility] Last Admin: 08/30/16 10:41 Dose: 50 mg Timolol Maleate (Timoptic 0.5% Ophth Soln) 1 drop OU DAILY [facility] Last Admin: 08/30/16 10:32 Dose: 1 drop Tramadol HCl (Ultram) 50 mg PO TID PRN PRN Reason: Pain, moderate (4-7) Last Admin: 08/29/16 23:31 Dose: 50 mg - Labs Labs: 08/30/16 11:04 Assessment and Plan - Assessment and Plan (Free Text) Assessment: A/P 86 YR OLD MALE ADMITTED FOR swelling of face/upper lip/ hypocalcemia calcium - 6.[address] Love cleared for discharge home today with calcitrol .25 mcg daily Discharge plan discussed with , family who understands and agree with plan RX sent to [facility]
--- NOTE | 2016-08-30 14:34 | CP.PCM.PN ---
Subjective - Date & Time of Evaluation Date of Evaluation: 08/30/16 Time of Evaluation: 10:00 - Subjective Subjective: clinically same Objective - Vital Signs/Intake and Output Vital Signs (last 24 hours): Temp Pulse Resp BP Pulse Ox 97.6 F 69 18 148/69 99 08/30/16 08:05 08/30/16 08:05 08/30/16 08:05 08/30/16 08:05 08/30/16 08:05 - Medications Medications: Current Medications Acetaminophen (Tylenol 325mg Tab) 650 mg PO Q6 PRN PRN Reason: for pain/ headache Last Admin: 08/25/16 21:28 Dose: 650 mg Amlodipine Besylate (Norvasc) 5 mg PO DAILY [facility] Last Admin: 08/30/16 10:31 Dose: 5 mg Calcitriol (Rocaltrol) 0.5 mcg PO BID [facility] Last Admin: 08/30/16 10:31 Dose: 0.5 mcg Calcium/Vitamin D (Oscal-D 250 Mg-125 Units Tab) 2 tab PO AC [facility] Last Admin: 08/30/16 14:23 Dose: 2 tab Carvedilol (Coreg) 3.125 mg PO BID [facility] Last Admin: 08/30/16 10:31 Dose: 3.125 mg Docusate Sodium (Colace) 100 mg PO BID [facility] Last Admin: 08/30/16 10:30 Dose: 100 mg Donepezil HCl (Aricept) 10 mg PO DAILY [facility] Last Admin: 08/30/16 10:31 Dose: 10 mg Dorzolamide HCl (Trusopt) 0 ml OU BID [facility] Last Admin: 08/29/16 17:05 Dose: 1 drop Glimepiride (Amaryl) 4 mg PO ACBD [facility] Last Admin: 08/30/16 10:31 Dose: 4 mg Insulin Human Regular (Novolin R) 0 unit SC ACHS [facility] PRN Reason: Protocol Last Admin: 08/30/16 14:25 Dose: 4 unit Levetiracetam (Keppra) 500 mg PO Q12 [facility] Last Admin: 08/30/16 10:43 Dose: 500 mg Losartan Potassium (Cozaar) 100 mg PO DAILY [facility] Last Admin: 08/30/16 10:31 Dose: 100 mg Memantine (Namenda) 5 mg PO BID [facility] Last Admin: 08/30/16 10:31 Dose: 5 mg Methylprednisolone (Solu-Medrol) 40 mg IVP Q12 [facility] Last Admin: 08/30/16 10:41 Dose: 40 mg Multivitamins (Hexavitamin) 1 tab PO DAILY [facility] Last Admin: 08/30/16 10:31 Dose: 1 tab Pantoprazole Sodium (Protonix Ec Tab) 40 mg PO BID [facility] Last Admin: 08/30/16 10:31 Dose: 40 mg Rosuvastatin Calcium (Crestor) 5 mg PO HS [facility] Last Admin: 08/29/16 21:43 Dose: 5 mg Sitagliptin Phosphate (Januvia) 50 mg PO DAILY [facility] Last Admin: 08/30/16 10:41 Dose: 50 mg Timolol Maleate (Timoptic 0.5% Ophth Soln) 1 drop OU DAILY [facility] Last Admin: 08/30/16 10:32 Dose: 1 drop Tramadol HCl (Ultram) 50 mg PO TID PRN PRN Reason: Pain, moderate (4-7) Last Admin: 08/29/16 23:31 Dose: 50 mg - Labs Labs: 08/30/16 11:04 - Constitutional Appears: Well - Head Exam Head Exam: ATRAUMATIC, NORMAL INSPECTION, NORMOCEPHALIC - Eye Exam Eye Exam: EOMI, Normal appearance, PERRL Pupil Exam: NORMAL ACCOMODATION, PERRL - ENT Exam ENT Exam: Mucous Membranes Moist, Normal Exam - Neck Exam Neck Exam: Full ROM, Normal Inspection. absent: Lymphadenopathy - Respiratory Exam Respiratory Exam: Decreased Breath Sounds - Cardiovascular Exam Cardiovascular Exam: REGULAR RHYTHM, +S1, +S2 - GI/Abdominal Exam GI & Abdominal Exam: Soft, Diminished Bowel Sounds - Rectal Exam Rectal Exam: Deferred
--- NOTE | 2016-08-30 16:24 | PN ---
DATE: 08/30/2016 ROOM: 558 This is an 86-year-old male with known history of type 2 diabetes and hypertension, presenting here w ith facial angioedema and currently on IV steroid therapy given as Solu-Medrol at 40 mg IV every 12 h ours as currently ordered at this time. 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 His latest chemistry showed a BUN of 24, sodium 130, potassium 4.2, chloride 93, CO2 23, glucose 240 and creatinine 1.0. His glucose levels have ranged from 118-257 and 277 mg/dL. His latest calcium l evel is 6.4 with an albumin level of 3.2 and a corrected calcium of 7.2 mg/dL. So at this time, we will continue the high-dose oral calcium replacement with Os-Wagner given as 500 mg t.i.d. before meals as ordered. We will also continue the calcitriol given as vitamin D analogs as 0 .5 mcg b.i.d. as ordered. We will titrate incrementally as indicated to optimize metabolic control. We will continue the low-dose correction scale using regular insulin for the transient hyperglycemic accelerations as noted thereof. We will follow and advise accordingly. Zamzam Ahuja MD cc: [id number] TT: 08/30/2016 16:23:18 Confirmation # [id number] Dictation # [id number]
[2016-08-30] MEDS: Dorzolamide 2% Opht Sol 10ml OU SCH (17:54)
[2016-09-01 11:21] VITALS: O2SAT 98
== END 2016-08-30 19:01 | disposition home health service (06) | DRG 916 ==
LOC: C.ER 17:18 → C.9E 18:55 → C.6T 19:47 → C.5T 08-28 04:24
PROVIDERS: ADMIT Internal Medicine Nephrology; ATTEND Internal Medicine Nephrology
DX: T78.3XXA Angioneurotic edema, initial encounter (principal); I11.9 Hypertensive heart disease without heart failure; E11.9 Type 2 diabetes mellitus without complications; E20.0 Idiopathic hypoparathyroidism; N28.9 Disorder of kidney and ureter, unspecified; G40.909 Epilepsy, unspecified, not intractable, without status epilepticus; E78.5 Hyperlipidemia, unspecified; K59.00 Constipation, unspecified; E78.00 Pure hypercholesterolemia, unspecified; Z79.84 Long term (current) use of oral hypoglycemic drugs; Z83.3 Family history of diabetes mellitus; Z87.891 Personal history of nicotine dependence; Z82.49 Family history of ischemic heart disease and other diseases of the circulatory system